=== PATIENT | male | born 1970 | race Caucasian/White ===

== ENCOUNTER → 2019-12-13 | Outpatient (CLI) | payer OTHER ==
[~2019-12-13] MED LIST: CEPH250A; Cleocin HCl150 MG PO
== END | disposition home or self-care (01) ==
LOC: LAB 19:32 → LAB SHORT 19:32
DX: L08.9 Local infection of the skin and subcutaneous tissue, unspecified (principal)
CPT/HCPCS: 87070; 87075; 87077; 87186; 87205

== ENCOUNTER → 2020-02-18 | Outpatient (CLI) | payer OTHER | END | disposition home or self-care (01) | LOC: LAB SHORT 17:46 → LAB 17:46 | DX: M99.86 Other biomechanical lesions of lower extremity (principal) | CPT/HCPCS: 87070; 87075; 87147; 87205 ==

== ENCOUNTER 2020-03-17 01:01 | Day surgery (SDC) | payer OTHER | END 2020-03-17 23:19 | disposition home or self-care (01) | LOC: WOUND 01:01 | DX: L97.812 Non-pressure chronic ulcer of other part of right lower leg with fat layer exposed (principal); I87.2 Venous insufficiency (chronic) (peripheral); F17.200 Nicotine dependence, unspecified, uncomplicated | CPT/HCPCS: 87081 ==

== ENCOUNTER 2020-03-20 00:37 | Day surgery (SDC) | payer OTHER | END 2020-03-20 22:45 | disposition home or self-care (01) | LOC: WOUND 00:37 | DX: L97.812 Non-pressure chronic ulcer of other part of right lower leg with fat layer exposed (principal); I87.2 Venous insufficiency (chronic) (peripheral) ==

== ENCOUNTER 2020-03-24 00:18 | Day surgery (SDC) | payer OTHER | END 2020-03-24 22:47 | disposition home or self-care (01) | LOC: WOUND 00:18 | DX: L97.812 Non-pressure chronic ulcer of other part of right lower leg with fat layer exposed (principal); I87.2 Venous insufficiency (chronic) (peripheral); Z79.899 Other long term (current) drug therapy ==

== ENCOUNTER 2020-03-28 00:31 | Day surgery (SDC) | payer OTHER | END 2020-03-28 23:00 | disposition home or self-care (01) | LOC: WOUND 00:31 | DX: L97.812 Non-pressure chronic ulcer of other part of right lower leg with fat layer exposed (principal); I87.2 Venous insufficiency (chronic) (peripheral) ==

== ENCOUNTER 2020-04-04 02:06 | Day surgery (SDC) | payer OTHER | END 2020-04-04 22:37 | disposition home or self-care (01) | LOC: WOUND 02:06 | DX: L97.815 Non-pressure chronic ulcer of other part of right lower leg with muscle involvement without evidence of necrosis (principal); I87.2 Venous insufficiency (chronic) (peripheral) ==

== ENCOUNTER 2020-04-11 12:30 | Day surgery (SDC) | payer OTHER | END 2020-04-11 22:42 | disposition home or self-care (01) | LOC: WOUND 12:30 | DX: L97.815 Non-pressure chronic ulcer of other part of right lower leg with muscle involvement without evidence of necrosis (principal); I87.2 Venous insufficiency (chronic) (peripheral); F17.200 Nicotine dependence, unspecified, uncomplicated ==

== ENCOUNTER 2020-04-14 00:48 | Day surgery (SDC) | payer OTHER | END 2020-04-14 22:40 | disposition home or self-care (01) | LOC: WOUND 00:48 | DX: I87.2 Venous insufficiency (chronic) (peripheral) (principal); L97.815 Non-pressure chronic ulcer of other part of right lower leg with muscle involvement without evidence of necrosis ==

== ENCOUNTER 2020-04-17 00:48 | Day surgery (SDC) | payer OTHER | END 2020-04-17 12:00 | disposition home or self-care (01) | LOC: WOUND 00:48 | DX: L97.815 Non-pressure chronic ulcer of other part of right lower leg with muscle involvement without evidence of necrosis (principal); I87.2 Venous insufficiency (chronic) (peripheral); F17.200 Nicotine dependence, unspecified, uncomplicated; Z79.899 Other long term (current) drug therapy ==

== ENCOUNTER 2020-04-22 00:29 | Day surgery (SDC) | payer OTHER | END 2020-04-22 12:00 | disposition home or self-care (01) | LOC: WOUND 00:29 | DX: L97.815 Non-pressure chronic ulcer of other part of right lower leg with muscle involvement without evidence of necrosis (principal); I87.2 Venous insufficiency (chronic) (peripheral) ==

== ENCOUNTER 2020-04-25 01:20 | Day surgery (SDC) | payer OTHER | END 2020-04-25 22:57 | disposition home or self-care (01) | LOC: WOUND 01:20 | DX: L97.815 Non-pressure chronic ulcer of other part of right lower leg with muscle involvement without evidence of necrosis (principal); L03.115 Cellulitis of right lower limb; I87.2 Venous insufficiency (chronic) (peripheral); F17.200 Nicotine dependence, unspecified, uncomplicated | CPT/HCPCS: 87071; 87075; 87077; 87186; 87205 ==

== ENCOUNTER 2020-04-29 02:05 | Day surgery (SDC) | payer OTHER | END 2020-04-29 23:09 | disposition home or self-care (01) | LOC: WOUND 02:05 | DX: L97.815 Non-pressure chronic ulcer of other part of right lower leg with muscle involvement without evidence of necrosis (principal); I87.2 Venous insufficiency (chronic) (peripheral) ==

== ENCOUNTER 2020-05-02 01:00 | Day surgery (SDC) | payer OTHER | END 2020-05-02 23:11 | disposition home or self-care (01) | LOC: WOUND 01:00 | DX: L97.815 Non-pressure chronic ulcer of other part of right lower leg with muscle involvement without evidence of necrosis (principal); L03.115 Cellulitis of right lower limb; I87.2 Venous insufficiency (chronic) (peripheral) ==

== ENCOUNTER 2020-05-06 00:54 | Day surgery (SDC) | payer OTHER | END 2020-05-06 23:01 | disposition home or self-care (01) | LOC: WOUND 00:54 | DX: L97.815 Non-pressure chronic ulcer of other part of right lower leg with muscle involvement without evidence of necrosis (principal); L03.115 Cellulitis of right lower limb; I87.2 Venous insufficiency (chronic) (peripheral) ==

== ENCOUNTER 2020-05-09 00:27 | Day surgery (SDC) | payer OTHER | END 2020-05-09 22:53 | disposition home or self-care (01) | LOC: WOUND 00:27 | DX: I96 Gangrene, not elsewhere classified (principal); L97.813 Non-pressure chronic ulcer of other part of right lower leg with necrosis of muscle; L03.115 Cellulitis of right lower limb; I87.2 Venous insufficiency (chronic) (peripheral); F17.200 Nicotine dependence, unspecified, uncomplicated; Z94.81 Bone marrow transplant status ==

== ENCOUNTER 2020-05-12 01:22 | Day surgery (SDC) | payer OTHER | END 2020-05-12 23:08 | disposition home or self-care (01) | LOC: WOUND 01:22 | DX: L97.815 Non-pressure chronic ulcer of other part of right lower leg with muscle involvement without evidence of necrosis (principal); L03.115 Cellulitis of right lower limb; I87.2 Venous insufficiency (chronic) (peripheral); F17.200 Nicotine dependence, unspecified, uncomplicated; Z79.899 Other long term (current) drug therapy ==

== ENCOUNTER 2020-05-14 01:02 | Day surgery (SDC) | payer OTHER | END 2020-05-14 22:44 | disposition home or self-care (01) | LOC: WOUND 01:02 | DX: I87.2 Venous insufficiency (chronic) (peripheral) (principal); L03.115 Cellulitis of right lower limb; L97.815 Non-pressure chronic ulcer of other part of right lower leg with muscle involvement without evidence of necrosis ==

== ENCOUNTER 2020-05-16 00:51 | Day surgery (SDC) | payer OTHER | END 2020-05-16 23:58 | disposition home or self-care (01) | LOC: WOUND 00:51 | DX: I96 Gangrene, not elsewhere classified (principal); L97.812 Non-pressure chronic ulcer of other part of right lower leg with fat layer exposed; L03.115 Cellulitis of right lower limb; I87.2 Venous insufficiency (chronic) (peripheral) ==

== ENCOUNTER 2020-05-19 13:45 | Day surgery (SDC) | payer OTHER | END 2020-05-19 23:18 | disposition home or self-care (01) | LOC: WOUND 13:45 | DX: I96 Gangrene, not elsewhere classified (principal); L97.812 Non-pressure chronic ulcer of other part of right lower leg with fat layer exposed; L03.115 Cellulitis of right lower limb; I87.2 Venous insufficiency (chronic) (peripheral); F17.200 Nicotine dependence, unspecified, uncomplicated; Z94.81 Bone marrow transplant status ==

== ENCOUNTER 2020-05-26 01:33 | Day surgery (SDC) | payer OTHER | END 2020-05-26 22:47 | disposition home or self-care (01) | LOC: WOUND 01:33 | DX: L97.815 Non-pressure chronic ulcer of other part of right lower leg with muscle involvement without evidence of necrosis (principal); L03.115 Cellulitis of right lower limb; I87.2 Venous insufficiency (chronic) (peripheral); F17.200 Nicotine dependence, unspecified, uncomplicated; Z79.899 Other long term (current) drug therapy ==

== ENCOUNTER 2020-06-02 00:31 | Day surgery (SDC) | payer OTHER | END 2020-06-02 22:52 | disposition home or self-care (01) | LOC: WOUND 00:31 | DX: L97.815 Non-pressure chronic ulcer of other part of right lower leg with muscle involvement without evidence of necrosis (principal); L03.115 Cellulitis of right lower limb; I87.2 Venous insufficiency (chronic) (peripheral); F17.200 Nicotine dependence, unspecified, uncomplicated ==

== ENCOUNTER 2020-06-09 00:21 | Day surgery (SDC) | payer OTHER | END 2020-06-09 22:48 | disposition home or self-care (01) | LOC: WOUND 00:21 | DX: I96 Gangrene, not elsewhere classified (principal); L97.822 Non-pressure chronic ulcer of other part of left lower leg with fat layer exposed; L97.812 Non-pressure chronic ulcer of other part of right lower leg with fat layer exposed; I87.2 Venous insufficiency (chronic) (peripheral); F17.200 Nicotine dependence, unspecified, uncomplicated; Z94.81 Bone marrow transplant status ==

== ENCOUNTER 2020-06-23 00:27 | Day surgery (SDC) | payer OTHER | END 2020-06-23 22:59 | disposition home or self-care (01) | LOC: WOUND 00:27 | DX: I96 Gangrene, not elsewhere classified (principal); L97.822 Non-pressure chronic ulcer of other part of left lower leg with fat layer exposed; L97.812 Non-pressure chronic ulcer of other part of right lower leg with fat layer exposed; I87.2 Venous insufficiency (chronic) (peripheral); F17.200 Nicotine dependence, unspecified, uncomplicated; Z94.81 Bone marrow transplant status ==

== ENCOUNTER 2020-07-08 00:44 | Day surgery (SDC) | payer OTHER | END 2020-07-08 22:47 | disposition home or self-care (01) | LOC: WOUND 00:44 | DX: L97.815 Non-pressure chronic ulcer of other part of right lower leg with muscle involvement without evidence of necrosis (principal); L97.811 Non-pressure chronic ulcer of other part of right lower leg limited to breakdown of skin; I87.2 Venous insufficiency (chronic) (peripheral); F17.200 Nicotine dependence, unspecified, uncomplicated; Z94.81 Bone marrow transplant status | CPT/HCPCS: A9270 ==

== ENCOUNTER 2020-07-29 00:21 | Day surgery (SDC) | payer OTHER | END 2020-07-29 23:45 | LOC: WOUND 00:21 | DX: L97.815 Non-pressure chronic ulcer of other part of right lower leg with muscle involvement without evidence of necrosis (principal); L03.115 Cellulitis of right lower limb; I87.2 Venous insufficiency (chronic) (peripheral); L97.821 Non-pressure chronic ulcer of other part of left lower leg limited to breakdown of skin; Z87.891 Personal history of nicotine dependence; Z94.81 Bone marrow transplant status | CPT/HCPCS: A9270 ==

== ENCOUNTER 2020-08-06 00:20 | Day surgery (SDC) | payer OTHER | END 2020-08-06 23:06 | disposition home or self-care (01) | LOC: WOUND 00:20 | DX: L97.815 Non-pressure chronic ulcer of other part of right lower leg with muscle involvement without evidence of necrosis (principal); L03.115 Cellulitis of right lower limb; I87.2 Venous insufficiency (chronic) (peripheral); F17.200 Nicotine dependence, unspecified, uncomplicated; Z87.2 Personal history of diseases of the skin and subcutaneous tissue; Z94.81 Bone marrow transplant status | CPT/HCPCS: A9270 ==

== ENCOUNTER 2020-08-13 01:37 | Day surgery (SDC) | payer OTHER | END 2020-08-13 23:01 | disposition home or self-care (01) | LOC: WOUND 01:37 | DX: L97.815 Non-pressure chronic ulcer of other part of right lower leg with muscle involvement without evidence of necrosis (principal); I87.2 Venous insufficiency (chronic) (peripheral); L97.821 Non-pressure chronic ulcer of other part of left lower leg limited to breakdown of skin; Z72.0 Tobacco use | CPT/HCPCS: A9270 ==

== ENCOUNTER 2020-08-19 00:44 | Day surgery (SDC) | payer OTHER | END 2020-08-19 23:08 | disposition home or self-care (01) | LOC: WOUND 00:44 | DX: L97.812 Non-pressure chronic ulcer of other part of right lower leg with fat layer exposed (principal); I87.2 Venous insufficiency (chronic) (peripheral); L97.811 Non-pressure chronic ulcer of other part of right lower leg limited to breakdown of skin; F17.200 Nicotine dependence, unspecified, uncomplicated; Z94.81 Bone marrow transplant status | CPT/HCPCS: A9270 ==

== ENCOUNTER 2020-08-26 00:54 | Day surgery (SDC) | payer OTHER | END 2020-08-26 23:01 | disposition home or self-care (01) | LOC: WOUND 00:54 | DX: L97.812 Non-pressure chronic ulcer of other part of right lower leg with fat layer exposed (principal); I73.9 Peripheral vascular disease, unspecified; Z72.0 Tobacco use; Z94.81 Bone marrow transplant status | CPT/HCPCS: A9270 ==

== ENCOUNTER 2020-08-28 00:21 | Day surgery (SDC) | payer OTHER | END 2020-08-28 23:02 | disposition home or self-care (01) | LOC: WOUND 00:21 | DX: L97.815 Non-pressure chronic ulcer of other part of right lower leg with muscle involvement without evidence of necrosis (principal); L97.821 Non-pressure chronic ulcer of other part of left lower leg limited to breakdown of skin; I87.2 Venous insufficiency (chronic) (peripheral) ==

== ENCOUNTER 2020-09-02 00:24 | Day surgery (SDC) | payer OTHER | END 2020-09-02 22:51 | disposition home or self-care (01) | LOC: WOUND 00:24 | DX: L97.812 Non-pressure chronic ulcer of other part of right lower leg with fat layer exposed (principal); L97.821 Non-pressure chronic ulcer of other part of left lower leg limited to breakdown of skin; I87.2 Venous insufficiency (chronic) (peripheral); F17.200 Nicotine dependence, unspecified, uncomplicated | CPT/HCPCS: A9270 ==

== ENCOUNTER 2020-09-05 01:02 | Day surgery (SDC) | payer OTHER | END 2020-09-05 23:06 | disposition home or self-care (01) | LOC: WOUND 01:02 | DX: L97.815 Non-pressure chronic ulcer of other part of right lower leg with muscle involvement without evidence of necrosis (principal); I87.2 Venous insufficiency (chronic) (peripheral); L97.821 Non-pressure chronic ulcer of other part of left lower leg limited to breakdown of skin ==

== ENCOUNTER 2020-09-09 00:36 | Day surgery (SDC) | payer OTHER | END 2020-09-09 22:43 | disposition home or self-care (01) | LOC: WOUND 00:36 | DX: L97.812 Non-pressure chronic ulcer of other part of right lower leg with fat layer exposed (principal); L97.821 Non-pressure chronic ulcer of other part of left lower leg limited to breakdown of skin; Z72.0 Tobacco use; Z94.81 Bone marrow transplant status ==

== ENCOUNTER 2020-09-17 00:27 | Day surgery (SDC) | payer OTHER | END 2020-09-17 22:39 | disposition home or self-care (01) | LOC: WOUND 00:27 | DX: L97.815 Non-pressure chronic ulcer of other part of right lower leg with muscle involvement without evidence of necrosis (principal); I87.2 Venous insufficiency (chronic) (peripheral); L97.821 Non-pressure chronic ulcer of other part of left lower leg limited to breakdown of skin; L98.8 Other specified disorders of the skin and subcutaneous tissue; F17.200 Nicotine dependence, unspecified, uncomplicated; Z94.81 Bone marrow transplant status | CPT/HCPCS: A9270 ==

== ENCOUNTER 2020-09-23 00:53 | Day surgery (SDC) | payer OTHER | END 2020-09-23 23:27 | disposition home or self-care (01) | LOC: WOUND 00:53 | DX: L97.812 Non-pressure chronic ulcer of other part of right lower leg with fat layer exposed (principal); L97.815 Non-pressure chronic ulcer of other part of right lower leg with muscle involvement without evidence of necrosis; L97.821 Non-pressure chronic ulcer of other part of left lower leg limited to breakdown of skin; I87.2 Venous insufficiency (chronic) (peripheral) | CPT/HCPCS: A9270 ==

== ENCOUNTER 2020-09-30 00:57 | Day surgery (SDC) | payer OTHER | END 2020-09-30 22:54 | disposition home or self-care (01) | LOC: WOUND 00:57 | DX: L97.815 Non-pressure chronic ulcer of other part of right lower leg with muscle involvement without evidence of necrosis (principal); L97.821 Non-pressure chronic ulcer of other part of left lower leg limited to breakdown of skin; I87.2 Venous insufficiency (chronic) (peripheral); Z94.81 Bone marrow transplant status; Z72.0 Tobacco use | CPT/HCPCS: A9270 ==

== ENCOUNTER 2020-10-07 01:23 | Day surgery (SDC) | payer OTHER | END 2020-10-07 22:44 | disposition home or self-care (01) | LOC: WOUND 01:23 | DX: L97.822 Non-pressure chronic ulcer of other part of left lower leg with fat layer exposed (principal); L97.815 Non-pressure chronic ulcer of other part of right lower leg with muscle involvement without evidence of necrosis; I87.2 Venous insufficiency (chronic) (peripheral); F17.210 Nicotine dependence, cigarettes, uncomplicated | CPT/HCPCS: A9270 ==

== ENCOUNTER 2020-10-14 00:18 | Day surgery (SDC) | payer OTHER | END 2020-10-14 22:42 | disposition home or self-care (01) | LOC: WOUND 00:18 | DX: L97.815 Non-pressure chronic ulcer of other part of right lower leg with muscle involvement without evidence of necrosis (principal); L97.821 Non-pressure chronic ulcer of other part of left lower leg limited to breakdown of skin; I87.2 Venous insufficiency (chronic) (peripheral); F17.210 Nicotine dependence, cigarettes, uncomplicated | CPT/HCPCS: A9270 ==

== ENCOUNTER 2020-10-21 00:38 | Day surgery (SDC) | payer OTHER | END 2020-10-21 23:24 | disposition home or self-care (01) | LOC: WOUND 00:38 | DX: L97.812 Non-pressure chronic ulcer of other part of right lower leg with fat layer exposed (principal); I87.2 Venous insufficiency (chronic) (peripheral); L97.821 Non-pressure chronic ulcer of other part of left lower leg limited to breakdown of skin; F17.200 Nicotine dependence, unspecified, uncomplicated | CPT/HCPCS: A9270 ==

== ENCOUNTER 2020-10-30 09:49 | Day surgery (SDC) | payer OTHER | END 2020-10-30 23:12 | disposition home or self-care (01) | LOC: WOUND 09:49 | DX: L97.815 Non-pressure chronic ulcer of other part of right lower leg with muscle involvement without evidence of necrosis (principal); I87.2 Venous insufficiency (chronic) (peripheral); F17.200 Nicotine dependence, unspecified, uncomplicated | CPT/HCPCS: A9270 ==

== ENCOUNTER 2020-11-04 00:36 | Day surgery (SDC) | payer OTHER | END 2020-11-04 23:05 | disposition home or self-care (01) | LOC: WOUND 00:36 | DX: L97.815 Non-pressure chronic ulcer of other part of right lower leg with muscle involvement without evidence of necrosis (principal) | CPT/HCPCS: A9270 ==

== ENCOUNTER 2020-11-11 03:34 | Day surgery (SDC) | payer OTHER | END 2020-11-11 23:05 | disposition home or self-care (01) | LOC: WOUND 03:34 | DX: L97.812 Non-pressure chronic ulcer of other part of right lower leg with fat layer exposed (principal) | CPT/HCPCS: A9270 ==

== ENCOUNTER 2020-11-18 03:08 | Day surgery (SDC) | payer OTHER | END 2020-11-18 23:05 | disposition home or self-care (01) | LOC: WOUND 03:08 | DX: L97.812 Non-pressure chronic ulcer of other part of right lower leg with fat layer exposed (principal); I87.2 Venous insufficiency (chronic) (peripheral) | CPT/HCPCS: A9270 ==

== ENCOUNTER 2020-11-25 04:52 | Day surgery (SDC) | payer OTHER | END 2020-11-25 23:41 | disposition home or self-care (01) | LOC: WOUND 04:52 | DX: L97.815 Non-pressure chronic ulcer of other part of right lower leg with muscle involvement without evidence of necrosis (principal); L97.812 Non-pressure chronic ulcer of other part of right lower leg with fat layer exposed; I87.2 Venous insufficiency (chronic) (peripheral); F17.210 Nicotine dependence, cigarettes, uncomplicated | CPT/HCPCS: A9270 ==

== ENCOUNTER 2020-12-02 02:21 | Day surgery (SDC) | payer OTHER | END 2020-12-02 22:50 | disposition home or self-care (01) | LOC: WOUND 02:21 | DX: L97.812 Non-pressure chronic ulcer of other part of right lower leg with fat layer exposed (principal); I87.2 Venous insufficiency (chronic) (peripheral); F17.210 Nicotine dependence, cigarettes, uncomplicated | CPT/HCPCS: A9270 ==

== ENCOUNTER 2020-12-12 04:49 | Day surgery (SDC) | payer OTHER | END 2020-12-12 23:50 | disposition home or self-care (01) | LOC: WOUND 04:49 | DX: L97.812 Non-pressure chronic ulcer of other part of right lower leg with fat layer exposed (principal); I87.2 Venous insufficiency (chronic) (peripheral); F17.210 Nicotine dependence, cigarettes, uncomplicated | CPT/HCPCS: A9270 ==

== ENCOUNTER 2020-12-16 05:00 | Day surgery (SDC) | payer OTHER | END 2020-12-16 23:02 | disposition home or self-care (01) | LOC: WOUND 05:00 | DX: L97.812 Non-pressure chronic ulcer of other part of right lower leg with fat layer exposed (principal); I87.2 Venous insufficiency (chronic) (peripheral); F17.210 Nicotine dependence, cigarettes, uncomplicated | CPT/HCPCS: A9270 ==

== ENCOUNTER 2020-12-19 01:59 | Day surgery (SDC) | payer OTHER | END 2020-12-19 04:17 | disposition home or self-care (01) | LOC: WOUND 01:59 | DX: L97.815 Non-pressure chronic ulcer of other part of right lower leg with muscle involvement without evidence of necrosis (principal); I87.2 Venous insufficiency (chronic) (peripheral) ==

== ENCOUNTER 2020-12-26 04:58 | Day surgery (SDC) | payer OTHER | END 2020-12-26 23:41 | disposition home or self-care (01) | LOC: WOUND 04:58 | DX: L97.815 Non-pressure chronic ulcer of other part of right lower leg with muscle involvement without evidence of necrosis (principal); I87.2 Venous insufficiency (chronic) (peripheral); F17.200 Nicotine dependence, unspecified, uncomplicated | CPT/HCPCS: 87081; 87147; A9270 ==

== ENCOUNTER 2021-01-02 00:45 | Day surgery (SDC) | payer OTHER | END 2021-01-02 23:00 | disposition home or self-care (01) | LOC: WOUND 00:45 | DX: L97.815 Non-pressure chronic ulcer of other part of right lower leg with muscle involvement without evidence of necrosis (principal); I87.2 Venous insufficiency (chronic) (peripheral); F17.200 Nicotine dependence, unspecified, uncomplicated | CPT/HCPCS: A9270 ==

== ENCOUNTER 2021-01-16 01:49 | Day surgery (SDC) | payer OTHER | END 2021-01-16 12:00 | disposition home or self-care (01) | LOC: WOUND 01:49 | DX: E11.622 Type 2 diabetes mellitus with other skin ulcer (principal); L97.815 Non-pressure chronic ulcer of other part of right lower leg with muscle involvement without evidence of necrosis; I87.2 Venous insufficiency (chronic) (peripheral); F17.200 Nicotine dependence, unspecified, uncomplicated; Z94.81 Bone marrow transplant status | CPT/HCPCS: A9270 ==

== ENCOUNTER 2021-01-19 03:00 | Day surgery (SDC) | payer OTHER | END 2021-01-19 23:04 | disposition home or self-care (01) | LOC: WOUND 03:00 | DX: L97.815 Non-pressure chronic ulcer of other part of right lower leg with muscle involvement without evidence of necrosis (principal); I87.2 Venous insufficiency (chronic) (peripheral) ==

== ENCOUNTER 2021-01-23 01:14 | Day surgery (SDC) | payer OTHER | END 2021-01-23 23:15 | disposition home or self-care (01) | LOC: WOUND 01:14 | DX: L97.812 Non-pressure chronic ulcer of other part of right lower leg with fat layer exposed (principal); I87.2 Venous insufficiency (chronic) (peripheral); F17.290 Nicotine dependence, other tobacco product, uncomplicated | CPT/HCPCS: A9270 ==

== ENCOUNTER 2021-01-26 08:50 | Day surgery (SDC) | payer OTHER | END 2021-01-26 23:02 | disposition home or self-care (01) | LOC: WOUND 08:50 | DX: L97.815 Non-pressure chronic ulcer of other part of right lower leg with muscle involvement without evidence of necrosis (principal); I87.2 Venous insufficiency (chronic) (peripheral) ==

== ENCOUNTER 2021-01-28 08:00 | Day surgery (SDC) | payer OTHER | END 2021-01-28 23:59 | disposition home or self-care (01) | LOC: WOUND 08:00 | DX: L97.815 Non-pressure chronic ulcer of other part of right lower leg with muscle involvement without evidence of necrosis (principal); I87.2 Venous insufficiency (chronic) (peripheral) ==

== ENCOUNTER 2021-01-30 00:38 | Day surgery (SDC) | payer OTHER | END 2021-01-30 23:00 | disposition home or self-care (01) | LOC: WOUND 00:38 | DX: L97.812 Non-pressure chronic ulcer of other part of right lower leg with fat layer exposed (principal); I87.2 Venous insufficiency (chronic) (peripheral) | CPT/HCPCS: 87071; 87075; 87077; 87147; 87186; 87205; A9270 ==

== ENCOUNTER 2021-02-04 01:37 | Day surgery (SDC) | payer OTHER | END 2021-02-04 22:40 | disposition home or self-care (01) | LOC: WOUND 01:37 | DX: L97.815 Non-pressure chronic ulcer of other part of right lower leg with muscle involvement without evidence of necrosis (principal); I87.2 Venous insufficiency (chronic) (peripheral) | CPT/HCPCS: A9270; G0463 ==

== ENCOUNTER 2021-02-06 01:39 | Day surgery (SDC) | payer OTHER | END 2021-02-06 23:38 | disposition home or self-care (01) | LOC: WOUND 01:39 | DX: L97.815 Non-pressure chronic ulcer of other part of right lower leg with muscle involvement without evidence of necrosis (principal); I87.2 Venous insufficiency (chronic) (peripheral) | CPT/HCPCS: A9270 ==

== ENCOUNTER → 2022-05-04 | Outpatient (CLI) | payer OTHER | LOC: LAB SHORT 15:10 → LAB 15:10 | DX: L02.413 Cutaneous abscess of right upper limb (principal) | CPT/HCPCS: 87070; 87075; 87147; 87205 ==